=== PATIENT | female | born 2000 | race Hispanic/Latino ===

== ENCOUNTER 2020-07-01 16:27 | Emergency (ER) | payer OTHER, SELFPAY | END 2020-07-01 17:46 | disposition home or self-care (01) | LOC: CSHERS 16:27 | DX: S39.012A Strain of muscle, fascia and tendon of lower back, initial encounter (principal); S40.022A Contusion of left upper arm, initial encounter; S40.021A Contusion of right upper arm, initial encounter; S80.02XA Contusion of left knee, initial encounter; S80.01XA Contusion of right knee, initial encounter; V43.52XA Car driver injured in collision with other type car in traffic accident, initial encounter | CPT/HCPCS: 99283 ==